=== PATIENT | male | born 1990 | race Caucasian/White ===

== ENCOUNTER 2017-07-12 18:20 | Observation (INO) | payer SELFPAY ==
[2017-07-12] MEDS ORDERED: NORMAL SALINE 1000 ML 1,000 ML IV ONE ×3 (18:58→22:32)
--- NOTE | 2017-07-12 18:59 | ER Document Report ---
ED Medical Screen (RME) - General Chief Complaint: Abdominal Pain Stated Complaint: VOMITING Time Seen by Provider: 07/12/17 18:55 TRAVEL OUTSIDE OF THE [place] IN LAST 30 DAYS: No - HPI Notes: 07/12/17 18:59 Worsening right lower quadrant pain - Related Data Allergies/Adverse Reactions: No Known Allergies Allergy (Verified 07/12/17 18:29) Past Medical History - Social History Chew tobacco use (# tins/day): No Frequency of alcohol use: Rare Drug Abuse: Marijuana Renal/ Medical History: Denies: Hx Peritoneal Dialysis Psychiatric Medical History: Reports: Hx Bipolar Disorder - Immunizations Hx Diphtheria, Pertussis, Tetanus Vaccination: Yes Review of Systems - Review of Systems Gastrointestinal: Abdominal pain Physical Exam - Vital signs Vitals: Temp Pulse Resp BP Pulse Ox 98 F 61 16 147/86 H 100 07/12/17 18:25 07/12/17 18:25 07/12/17 18:25 07/12/17 18:25 07/12/17 18:25 - Abdominal Tenderness: Tender - Right lower quadrant tenderness mild to moderate periumbilical tenderness as well Course - Vital Signs Vital signs: Temp Pulse Resp BP Pulse Ox 98 F 61 16 147/86 H 100 07/12/17 18:25 07/12/17 18:25 07/12/17 18:25 07/12/17 18:25 07/12/17 18:25
[2017-07-12] MEDS ORDERED: ONDANSETRON HCL INJ/PF 4 MG/2 ML SDV IV ONE ×2 (19:25→19:54)
[2017-07-12 19:33] LABS: ABSOLUTE MONOCYTES (AUTO) 0.7 10^3/uL (0.1-1.4); ABSOLUTE NEUT (AUTO) 12.9 10^3/uL (1.7-8.2); BASOPHILS % (AUTO) 0.3 % (0-2); EOSINOPHILS % (AUTO) 0.2 % (0-6); HEMATOCRIT 45.4 % (37.9-51.0); HEMOGLOBIN 15.4 g/dL (13.5-17.0); HGB HCT DIFFERENCE 0.8; LYMPHOCYTES % (AUTO) 7.1 % (13-45); MEAN CORPUSCULAR VOLUME 91 fl (80-97); MONOCYTES % (AUTO) 4.9 % (3-13); RED BLOOD COUNT 4.97 10^6/uL (4.35-5.55); RED CELL DISTRIBUTION WIDTH 12.5 % (11.5-14.0); SEGMENTED NEUTROPHILS % (AUTO) 87.5 % (42-78); WHITE BLOOD COUNT 14.7 10^3/uL (4.0-10.5)
--- NOTE | 2017-07-12 19:35 | ER Document Report ---
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 No BM, pain got worse, threw up, couldn't get comfortable, came back to ER (was here earlier with son). No fever, but gets sweats before vomiting. Vomited up the 1st bottle of CT contrast. Past few days had a bad right ear pain. surgeries: screws in fx left ankle. No abd. surgeries. Had pain in testicles when coughing/vomiting earlier, none now. TRAVEL OUTSIDE OF THE [place] IN LAST 30 DAYS: No - Related Data Allergies/Adverse Reactions: No Known Allergies Allergy (Verified 07/12/17 18:29) Home Medications: Current Home Medications No Home Medications 07/13/17 [History] Past Medical History - General Information source: Patient - Social History Smoking Status: Current Every Day Smoker Chew tobacco use (# tins/day): No Frequency of alcohol use: Rare Drug Abuse: Marijuana Lives with: Family Family History: Reviewed & Not Pertinent Patient has suicidal ideation: No Patient has homicidal ideation: No Renal/ Medical History: Denies: Hx Peritoneal Dialysis Psychiatric Medical History: Reports: Hx Bipolar Disorder Past Surgical History: Reports: Hx Orthopedic Surgery - ankle - Immunizations Hx Diphtheria, Pertussis, Tetanus Vaccination: Yes Review of Systems - Review of Systems Constitutional: No symptoms reported EENT: No symptoms reported Cardiovascular: No symptoms reported Respiratory: No symptoms reported Gastrointestinal: See HPI Genitourinary: No symptoms reported Male Genitourinary: No symptoms reported Musculoskeletal: No symptoms reported Skin: No symptoms reported Hematologic/Lymphatic: No symptoms reported Neurological/Psychological: No symptoms reported Physical Exam - Vital signs Vitals: Temp Pulse Resp BP Pulse Ox 98 F 61 16 147/86 H 100 07/12/17 18:25 07/12/17 18:25 07/12/17 18:25 07/12/17 18:25 07/12/17 18:25 Interpretation: Normal - General General appearance: Appears well, Alert - HEENT Head: Normocephalic, Atraumatic Eyes: Normal Conjunctiva: Normal Pupils: PERRL Mucous membranes: Normal Pharynx: Erythema - mild Neck: Supple. No: Lymphadenopathy - Respiratory Respiratory status: No respiratory distress Chest status: Nontender Breath sounds: Normal Chest palpation: Normal - Cardiovascular Rhythm: Regular Heart sounds: Normal auscultation Murmur: No - Abdominal Inspection: Normal Distension: No distension Bowel sounds: Normal Tenderness: Tender - very low lateral right abeomen, not mcburny's, no hernia Organomegaly: No organomegaly - Genitourinary Tenderness: Nontender. No: Testicle tender, Epididymis tender Scrotum: Normal. No: Swelling Notes: pt states testicle are hanging normally - Back Back: Normal, Nontender. No: CVA tenderness - Extremities General upper extremity: Normal inspection, Nontender, Normal color, Normal ROM , Normal temperature General lower extremity: Normal inspection, Nontender, Normal color, Normal ROM , Normal temperature, Normal weight bearing. No: Elvira's sign - Neurological Neuro grossly intact: Yes Cognition: Normal Orientation: AAOx4 [place] Coma Scale Eye Opening: Spontaneous Mary Ellen Coma Scale Verbal: Oriented Mary Ellen Coma Scale Motor: Obeys Commands [place] Coma Scale Total: 15 Speech: Normal Motor strength normal: LUE, RUE, LLE, RLE Sensory: Normal - Psychological Associated symptoms: Normal affect, Normal mood - Skin Skin Temperature: Warm Skin Moisture: Dry Skin Color: Normal Course - Re-evaluation Re-evalutation: 07/12/17 22:30 Ua 1.058, after the CT scan iv contrast, inflammation surrounding a normal sized appendix that is inflamed and the radiologist says that is early appendicitis. Zosyn has been ordered. Dr. Bellamy will admit the patient. The patient does admit that he did eat something at 8 PM tonight but vomited it back up. - Vital Signs Vital signs: Temp Pulse Resp BP Pulse Ox 98.0 F 66 17 117/64 98 07/13/17 09:44 07/13/17 09:44 07/13/17 09:44 07/13/17 09:44 07/13/17 09:44 - Laboratory Result Diagrams: 07/12/17 19:20 07/12/17 19:20 Laboratory results interpreted by me: 07/12/17 07/12/17 19:20 19:20 WBC 14.7 H Seg Neutrophils % 87.5 H Lymphocytes % 7.1 L Absolute Neutrophils 12.9 H Sodium 147.9 H AST 16 L ALT 20 L Discharge - Discharge Clinical Impression: early appendicitis Condition: Good Disposition: ADMITTED INPATIENT Admitting Provider: Surgicalist Unit Admitted: Surgical Floor
[2017-07-12 19:52] LABS: ALANINE AMINOTRANSFERASE 20 U/L (21-72); ALBUMIN 4.9 g/dL (3.5-5.0); ALKALINE PHOSPHATASE 99 U/L (38-126); ANION GAP 16 (5-19); ASPARTATE AMINO TRANSFERASE 16 U/L (17-59); BILIRUBIN,DIRECT 0.3 mg/dL (0.0-0.4); BILIRUBIN,TOTAL 0.4 mg/dL (0.2-1.3); BLOOD UREA NITROGEN 15 mg/dL (7-20); CALCIUM 9.6 mg/dL (8.4-10.2); CARBON DIOXIDE 30 mmol/L (22-30); CHLORIDE 102 mmol/L (98-107); CREATININE RESULT 0.91 mg/dL (0.52-1.25); GLUCOSE 109 mg/dL (75-110); LIPASE 91.5 U/L (23-300); SODIUM 147.9 mmol/L (137-145); TOTAL PROTEIN 7.9 g/dL (6.3-8.2)
--- NOTE | 2017-07-12 21:56 | RADIOLOGY REPORT (SQ) ---
EXAM DESCRIPTION: CT ABD/PELVIS WITH IV ORAL COMPLETED DATE/TIME: 07/12/2017 9:36 pm REASON FOR STUDY: RLQ pain COMPARISON: None. TECHNIQUE: CT scan of the abdomen and pelvis performed using helical scanning technique with dynamic intravenous contrast injection. No oral contrast. Images reviewed with lung, soft tissue, and bone windows. Reconstructed coronal and sagittal MPR images reviewed. Delayed images for evaluation of the urinary system also acquired. All images stored on PACS. All CT scanners at this facility use dose modulation, iterative reconstruction, and/or weight based d osing when appropriate to reduce radiation dose to as low as reasonably achievable (ALARA). [facility]: Dose Right [facility]: CareDose [facility]: Dose Right [facility]: Teradose 4D [facility]: C3 Metrics CONTRAST TYPE AND DOSE: contrast/concentration: Isovue 370.00 mg/ml; Total Contrast Delivered: 67.0 ml; Total Saline Delivered: 65.0 ml RENAL FUNCTION: BUN 15; creatinine 0.91 RADIATION DOSE: CT Rad equipment meets quality standard of care and radiation dose reduction techniq ues were employed. CTDIvol: 5.1 - 6.2 mGy. DLP: 549 mGy-cm.. LIMITATIONS: None. FINDINGS: LOWER CHEST: No significant findings. No nodules or infiltrates. LIVER: Normal size. No masses. No dilated ducts. SPLEEN: Normal size. No focal lesions. PANCREAS: No masses. No significant calcifications. No adjacent inflammation or peripancreatic fluid collections. Pancreatic duct not dilated. GALLBLADDER: No identified stones by CT criteria. No inflammatory changes to suggest cholecystitis. ADRENAL GLANDS: No significant masses or asymmetry. RIGHT KIDNEY AND URETER: No solid masses. No significant calcifications. No hydronephrosis or hyd roureter. LEFT KIDNEY AND URETER: No solid masses. No significant calcifications. No hydronephrosis or hydr oureter. AORTA AND VESSELS: No aneurysm. No dissection. Renal arteries, SMA, celiac without stenosis. RETROPERITONEUM: No retroperitoneal adenopathy, hemorrhage or masses. BOWEL AND PERITONEAL CAVITY: Right pericolic mesenteric fat stranding. Enteric contrast is seen to t he level of the cecum. The bowel appears unremarkable. APPENDIX: While the appendix measures normal caliber, mural thickening and hyperemia are present and inflammatory changes are seen adjacent to this structure. No focal fluid collection or abscess. No pneumoperitoneum. PELVIS: No mass. Scant simple appearing free fluid is present. Normal bladder. ABDOMINAL WALL: No masses. No hernias. BONES: No significant or acute findings. OTHER: No other significant finding. IMPRESSION: Findings consistent with early uncomplicated appendicitis. TECHNICAL DOCUMENTATION: JOB ID: [id number] Quality ID # [id number]: Final reports with documentation of one or more dose reduction techniques (e.g., Au tomated exposure control, adjustment of the mA and/or kV according to patient size, use of iterative reconstruction technique) 2010 [employer]- All Rights Reserved
[2017-07-12 22:09] LABS: APPEARANCE,URINE CLEAR; BILIRUBIN,URINE NEGATIVE (NEGATIVE); GLUCOSE, URINE NEGATIVE (NEGATIVE); KETONES,URINE NEGATIVE (NEGATIVE); LEUKOCYTE ESTERASE,URINE NEGATIVE (NEGATIVE); NITRITE,URINE NEGATIVE (NEGATIVE); PROTEIN,URINE NEGATIVE (NEGATIVE); URINE SPECIFIC GRAVITY 1.058; UROBILINOGEN,URINE NEGATIVE mg/dL (<2.0)
[2017-07-12] MEDS ORDERED: PIPERACILLIN/TAZOBACTAM 3.375 GM VIAL IV ONE (22:31)
[2017-07-12] MEDS ORDERED: ONDANSETRON HCL INJ/PF 4 MG/2 ML SDV IV PRN (23:54)
[2017-07-12] MEDS ORDERED: HYDROMORPHONE HCL INJ/PF 2 MG/ML AMPULE IV PRN (23:54)
[2017-07-12] MEDS ORDERED: PIPERACILLIN SODIUM/TAZOBACTAM 3.375 GM in NORMAL SALINE 100 ML IV ONE (23:59)
[2017-07-13] MEDS: HYDROMORPHONE HCL INJ/PF 2 MG/ML AMPULE IV PRN ×2 (00:09→11:40)
[2017-07-13] MEDS ORDERED: GLUCAGON,HUMAN RECOMB 1 MG INJ SUBCUT PRN (00:37)
[2017-07-13] MEDS ORDERED: DEXTROSE 50%-WATER 25 GM/50 ML DISP.SYRIN IV PRN ×2 (00:37)
[2017-07-13] MEDS ORDERED: DEXTROSE 40% GEL 15 GM TUBE PO PRN ×2 (00:37)
[2017-07-13] MEDS: POTASSI CL 20 MEQ/D5-1/2NS 1L 1000 ML IV PRN ×2 (01:54→12:31)
[2017-07-13] MEDS ORDERED: PIPERACILLIN/TAZOBACTAM 3.375 GM VIAL IV ONE (06:14)
[2017-07-13] MEDS: PIPERACILLIN/TAZOBACTAM 3.375 GM VIAL IV PRN ×2 (06:32→06:36)
[2017-07-13] MEDS: PIPERACILLIN SODIUM/TAZOBACTAM 3.375 GM in NORMAL SALINE 100 ML IV SCH ×2 (06:38→13:50)
[2017-07-13] MEDS ORDERED: IBUPROFEN INJ 800 MG/8 ML VIAL IV ONE (09:57)
[2017-07-13] MEDS ORDERED: MIDAZOLAM 2 MG/2 ML INJ ONE (09:57)
[2017-07-13] MEDS ORDERED: PROPOFOL INJ 200 MG/20 ML VIAL IV ONE (09:57)
[2017-07-13] MEDS ORDERED: FENTANYL CITRATE INJ/PF 100 MCG/2 ML AMPUL ONE (09:57)
[2017-07-13] MEDS ORDERED: MORPHINE SULFATE 10 MG/ML INJ ONE (09:58)
--- NOTE | 2017-07-13 09:58 | HISTORY AND PHYSICAL E ---
History and Physical NAME: CORAL SERNA : 1990 AGE: 27Y ADMITTED: 07/12/2017 ROOM: 428 A 27-year-old male patient came into the emergency room with history of abdominal pain. The symptoms started 07/12/2017. The patient complained of a 1 day history of nausea, abdominal pain and vomiting. He came to the emergency room for evaluation and management. PAST MEDICAL PROBLEMS: No major medical problems. PAST SURGICAL HISTORY: None. REVIEW OF SYSTEMS: As per examination. PHYSICAL EXAMINATION: GENERAL: He is a pleasant young gentleman not in acute distress. VITAL SIGNS: Stable. HEAD AND NECK EXAMINATION: No lymphadenopathy. No masses. RESPIRATORY EXAMINATION: Both lungs are clear to auscultation. CARDIOVASCULAR EXAMINATION: Heart sounds regular. No murmurs, rubs or gallops. ABDOMINAL EXAMINATION: His abdomen has slight tenderness in the right lower quadrant area. No mass palpable. No hernia. EXTREMITIES: Warm, well perfused. IMAGING STUDIES: CT scan of the abdomen and pelvis done, which revealed normal diameter of appendix, but of the appendix. White count 4000. IMPRESSION OVERALL: 1. EARLY APPENDICITIS. 2. DEHYDRATION DUE TO MULTIPLE EPISODES OF NAUSEA AND VOMITING. PLAN: Admit for IV hydration. Once he is rehydrated, then plan for laparoscopic appendectomy. IV antibiotic started. DICTATING PHYSICIAN: DARA MEREDITH M.D. [id number] MALATHI#: [id number] ID: [id number] JOB#: [id number] ACCT: [id number] cc:NO Dino AVALOS MTDD
[2017-07-13] MEDS: BUPIVACAINE HCL 0.5%-EPI 1:200000 INJ/PF 30 ML VIAL ONE ×2 (10:02→10:29)
[2017-07-13] MEDS ORDERED: FENTANYL CITRATE INJ/PF 100 MCG/2 ML AMPUL IV PRN ×3 (10:34)
[2017-07-13] MEDS ORDERED: DIPHENHYDRAMINE HCL 50 MG/ML VIAL IV PRN (10:34)
[2017-07-13] MEDS ORDERED: MEPERIDINE HCL/PF INJ 25 MG/1 ML DISP.SYRIN IV PRN (10:34)
[2017-07-13] MEDS ORDERED: MORPHINE SULFATE 10 MG/ML INJ IV PRN (10:34)
[2017-07-13] MEDS ORDERED: PROMETHAZINE HCL INJ 25 MG/1 ML VIAL IV PRN ×2 (10:34)
[2017-07-13] MEDS ORDERED: OXYCODONE-ACETAMINOPHEN 5-325 MG TABLET PO PRN ×2 (10:34)
[2017-07-13] MEDS ORDERED: HYDROMORPHONE HCL INJ/PF 2 MG/ML AMPULE ONE (11:41)
[2017-07-13] MEDS ORDERED: ONDANSETRON HCL INJ/PF 4 MG/2 ML SDV ONE (13:16)
[2017-07-13] MEDS ORDERED: SUCCINYLCHOLINE CHLORIDE INJ 200 MG/10 ML VIAL ONE (13:16)
[2017-07-13] MEDS ORDERED: ROCURONIUM BROMIDE INJ 50 MG/5 ML VIAL IV ONE (13:16)
[2017-07-13] MEDS ORDERED: DEXAMETHASONE SOD PHOSPHATE INJ 4 MG/1 ML VIAL ONE (13:16)
--- NOTE | 2017-07-13 13:43 | OPERATIVE REPORT E ---
Operative Report NAME: CORAL SERNA : 1990 AGE: 27Y DATE OF SURGERY: 07/13/2017 ROOM: 428 PREOPERATIVE DIAGNOSIS: A 27-year-old male patient with acute appendicitis. POSTOPERATIVE DIAGNOSES: 1. Acute appendicitis. 2. Small umbilical hernia. OPERATIONS: 1. Laparoscopic appendectomy. 2. Repair of umbilical hernia. SURGEON: DARA MEREDITH M.D. ANESTHESIA: General. BLOOD LOSS: Less than 5 mL. TISSUE REMOVED OR ALTERED: Appendix. HISTORY AND INDICATION: As described. DESCRIPTION OF OPERATION: The patient in the supine position with CD boots. The abdomen was cleaned and draped for sterile field. He was given antibiotic, Zosyn continued. In the infraumbilical area, about 1 cm small hernial defect dissected. Through the same defect, a 12 mm trocar inserted. Under direct laparoscopic visualization, a 5 mm trocar was inserted in the suprapubic area and another 5 in the left lower quadrant area. Findings: The appendix inflamed and large, no rupture, no leak, no abscess. The appendix was mobilized from the part of the retrocecal area and the mesoappendix was divided and scalpel with complete hemostasis. The appendix was divided by using a #45 stapler close to the cecum and retrieved with an EndoCatch bag. The abdominal cavity and pelvic cavity were irrigated and suctioned out, completely hemostatic. All the trocars were removed. All pneumoperitoneum cleared. The fascia around the umbilical hernia defect was mobilized superiorly and inferiorly and then overlapping repair of the hernia was performed by using 0 Vicryl running suture in 2 layers and 3-0 and 4-0 Vicryl for the skin. The patient encountered no problems and was taken to the recovery room in stable condition. DICTATING PHYSICIAN: DARA MEREDITH M.D. [id number] PHY#: [id number] ID: [id number] JOB#: [id number] ACCT: [id number] cc:DARA MEREDITH M.D. > MTDD
[2017-07-13 15:47] VITALS: BP 117/64
--- NOTE | 2017-07-13 22:43 | DISCHARGE SUMMARY E ---
Discharge Summary NAME: CORAL SERNA : 1990 AGE: 27Y ADMITTED: 07/12/2017 DISCHARGED: 07/13/2017 REASON FOR ADMISSION: Admitted for observation. ADMITTING DIAGNOSIS: Early acute appendicitis. DISCHARGE DIAGNOSIS: Early acute appendicitis. OPERATIVE PROCEDURE: Laparoscopic appendectomy. HOSPITAL COURSE: The patient is feeling well postoperative. Tolerating diet. I have given IV Zosyn. Pain is under well control. He is being discharged home to follow up in the surgery clinic in 2 weeks. DICTATING PHYSICIAN: DARA MEREDITH M.D. [id number] PHY#: [id number] ID: [id number] JOB#: [id number] ACCT: [id number] cc:Karthik ELLIOTT M.D. >
== END 2017-07-13 16:13 | disposition home or self-care (01) ==
LOC: ER 18:20 → EH 23:04 → INTOOBSV 23:04 → 4S 07-13 00:35
PROVIDERS: ATTEND Colon & Rectal Surgery
PROC: 0WQF4ZZ Repair Abdominal Wall, Percutaneous Endoscopic Approach (ICD-10-PCS; 2017-07-13)
PROC: 0DTJ4ZZ Resection of Appendix, Percutaneous Endoscopic Approach (ICD-10-PCS; principal; 2017-07-13 09:15)
DX: K35.80 Unspecified acute appendicitis (principal); K42.9 Umbilical hernia without obstruction or gangrene; E86.0 Dehydration; F17.200 Nicotine dependence, unspecified, uncomplicated; F12.10 Cannabis abuse, uncomplicated
CPT/HCPCS: 96376; 99285; 96361; 96374; 36415; 83690; 85025; 80053; 81001; 88304 ×2; 74177; 44970; 49652; G0378; J2250; J3490 ×2; J1100; J3010; J2270; J1170; J3480; J0330; J2405 ×2; J7030; J2704; J2543; J1741; 840

== ENCOUNTER 2017-08-06 20:49 | Emergency (ER) | payer SELFPAY ==
[2017-08-06 21:10] VITALS: BP 120/71
--- NOTE | 2017-08-06 22:51 | ER Document Report ---
ED ENT - General Chief Complaint: Ear Pain Stated Complaint: EAR PAIN Time Seen by Provider: 08/06/17 22:38 Mode of Arrival: Ambulatory Information source: Patient Notes: Patient is a 27-year-old male comes emergency room complaining of right ear pain. Patient states he has this happen quite a lot he has been seen at different ER facilities which she says is on a regular basis for his right ear left ear pain. He states he put on amoxicillin and the pain gets better and goes away. This was started today and he has had difficulty sleeping. Patient is also requesting a referral to ENT if at all possible. He denies any other medical problems he is recently had his appendix out which is the only major medical things had going. 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 TRAVEL OUTSIDE OF THE [place] IN LAST 30 DAYS: No - HPI Patient complains to provider of: Ear problem Onset: This morning Onset/Duration: Sudden, Worse Quality of pain: Achy Severity: Moderate Pain Level: 3 Context: denies: Allergies, Injury, Recent Illness, Travel, Other Location of pain: Ears Associated symptoms: Dental pain, Jaw pain, Sinus pain. denies: None, Barotrauma, Broken tooth, Chills, Congestion, Cough, Dental caries, Difficulty swallowing, Dizziness, Drooling, Ear pain, Ear drainage, Ear trauma, Face swelling, Fever, Foreign body, Hearing loss, Headache, Hoarse voice, Jaw swelling, Motion sickness, Neck pain, Nose bleed, Runny nose, Sinus drainage, Sore throat, Stiff neck, Swollen glands, Tinnitus, Vertigo, Other Similar symptoms previously: Yes Recently seen / treated by doctor: No - Related Data Allergies/Adverse Reactions: No Known Allergies Allergy (Verified 07/12/17 18:29) Past Medical History - General Information source: Patient - Social History Smoking Status: Current Every Day Smoker Cigarette use (# per day): Yes - Half-pack a day Smoking Education Provided: Yes Frequency of alcohol use: Rare Drug Abuse: None Occupation: Correction Lives with: Family Family History: Reviewed & Not Pertinent Renal/ Medical History: Denies: Hx Peritoneal Dialysis Psychiatric Medical History: Reports: Hx Bipolar Disorder Past Surgical History: Reports: Hx Orthopedic Surgery - ankle - Immunizations Hx Diphtheria, Pertussis, Tetanus Vaccination: Yes Review of Systems - Review of Systems Constitutional: No symptoms reported EENT: Ear pain, Nose congestion, Dental problem Cardiovascular: No symptoms reported Respiratory: No symptoms reported Gastrointestinal: No symptoms reported Genitourinary: No symptoms reported Male Genitourinary: No symptoms reported Musculoskeletal: No symptoms reported Skin: No symptoms reported Hematologic/Lymphatic: No symptoms reported Neurological/Psychological: No symptoms reported -: Yes All other systems reviewed and negative Physical Exam - Vital signs Vitals: Temp Pulse Resp BP Pulse Ox 98.2 F 69 16 120/71 98 08/06/17 21:09 08/06/17 21:09 08/06/17 21:09 08/06/17 21:09 08/06/17 21:09 Interpretation: Normal - General General appearance: Alert, Other - Uncomfortable appearing - HEENT Head: Normocephalic, Atraumatic Eyes: Normal Fundascopic: Retinal detachment - Bulging slightly. There is moderate amount of erythema that is noted throughout the canal on the side. Ears shows that the left ear appears normal. This is the external canals are clear of any kind of cerumen. Right side shows no cerumen and TM is it is not swollen enough to use a wick at this time but it is swollen enough that needs drops currently. Patient denies any swimming or any wetness to the ear that he knows of except sweats. Ears: Normal External canal: Erythema, Swollen, Other - Termination of patient's bilateral Tympanic membrane: Bulging - Patient also has some mild bulging on the right TM with a fluid level behind it. There is moderate erythema surrounding the TM. Mucous membranes: Dry, Moist, Other - Termination patient's oral cavity and externally on the face shows no major swelling. TMJ does show a little bit of crepitus on the right side when compared to the left. There is some dental dysfunction in the right upper area which between the TMJ right upper dental decay and the ear patient may have a combination of things going on. Teeth diagram: 1 - Patient has dental caries on the right side that are noted. Also has some on the upper level that could be adding to the discomfort on the ear as well. Pharynx: Normal, Post nasal drainage. No: Blood in hypopharynx, Erythema, Exudate, Peritonsillar abscess, Retropharyngeal abscess, Tonsillar hypertrophy, Uvular edema, Potential airway comprom., Other Neck: Normal - Respiratory Respiratory status: No respiratory distress Chest status: Nontender Breath sounds: Normal. No: Decreased air movement, Nonproductive cough, Productive cough, Rales, Rhonchi, Stridor, Wheezing, Other Chest palpation: Normal - Cardiovascular Rhythm: Regular Heart sounds: Normal auscultation Murmur: No - Neurological Neuro grossly intact: Yes Cognition: Normal Orientation: AAOx4 [place] Coma Scale Eye Opening: Spontaneous Mary [place]ln Coma Scale Verbal: Oriented [place] Coma Scale Motor: Obeys Commands [place] Coma Scale Total: 15 Speech: Normal Cranial nerves: Normal - Skin Skin Temperature: Warm Skin Moisture: Dry Skin Color: Normal, [place] Course - Vital Signs Vital signs: Temp Pulse Resp BP Pulse Ox 98.2 F 69 16 120/71 98 08/06/17 21:09 08/06/17 21:09 08/06/17 21:09 08/06/17 21:09 08/06/17 21:09 - Transfer of Care Notes: 08/06/17 22:55 Physical exam does show that the external canal is very erythematous on the right will use drops for this. The TMJ seems to be a little loose and a little crepitus noticed with opening and [id number] motion. And there is some dental decay in the upper right side may be adding to the pain in the ear. Will give patient a referral to the ENT communication arts lecturer. Discharge - Discharge Clinical Impression: Otitis externa Qualifiers: Otitis externa type: unspecified type Chronicity: acute Laterality: right Qualified Code(s): H60.501 - Unspecified acute noninfective otitis externa, right ear Otitis media with effusion Qualifiers: Laterality: right Qualified Code(s): H65.91 - Unspecified nonsuppurative otitis media, right ear Condition: Good Disposition: HOME, SELF-CARE Instructions: Acetaminophen, Use of Ear Drops ([facility]), Otitis Externa ([facility]) Additional Instructions: Home and rest. Medications prescribed. As we discussed am giving you the name of the ears nose and throat communication arts lecturer today he may contact her office to see if they can accommodate you. Should you have any concerns or problems or if things electronic data interchange specialist the next 2448 hrs. return to ER for recheck. Prescriptions: Amoxicillin 500 mg PO TID #30 capsule Neomy Sulf/Polymyx B Sulf/Hc [Cortisporin Otic Susp] 3 drop Q4 7 Days #1 bottle Forms: Smoking Cessation Education, Return to Work Referrals: CIRA NANCE DO [ACTIVE STAFF] - Follow up as needed
== END 2017-08-06 23:05 | disposition home or self-care (01) ==
LOC: ER 20:49
DX: H60.501 Unspecified acute noninfective otitis externa, right ear (principal); H65.91 Unspecified nonsuppurative otitis media, right ear; H92.01 Otalgia, right ear; K02.9 Dental caries, unspecified; K08.89 Other specified disorders of teeth and supporting structures; J34.89 Other specified disorders of nose and nasal sinuses; R09.82 Postnasal drip; R09.81 Nasal congestion; F17.210 Nicotine dependence, cigarettes, uncomplicated; Z90.49 Acquired absence of other specified parts of digestive tract
CPT/HCPCS: 99282

== ENCOUNTER 2017-10-05 21:50 | Emergency (ER) | payer BC ==
[2017-10-06] MEDS ORDERED: IBUPROFEN 800 MG TABLET PO ONE (00:33)
[2017-10-06] MEDS ORDERED: PENICILLIN V POTASSIUM 500 MG TABLET PO ONE (00:33)
--- NOTE | 2017-10-06 00:33 | ER Document Report ---
HPI - HPI Patient complains to provider of: Toothache Pain Level: 0 Context: Patient is a 27-year-old male presents emergency department complaining of bilateral jaw pain as well as left lower toothache. Patient states that he has had sharp pain on and off for the past 6 months. He otherwise states that his toothache is been over the past week. He denies any foul drainage, difficulty swallowing. States that he does have pain when eating. He states that he is trying to follow-up with his dentist in 1 week. Otherwise patient is very difficult to speak to in a poor historian. He states that he did take a Percocet from a family member prior to arrival. - REPRODUCTIVE Reproductive: DENIES: : Past Medical History - Social History Smoking Status: Current Every Day Smoker Family History: Reviewed & Not Pertinent Renal/ Medical History: Denies: Hx Peritoneal Dialysis Psychiatric Medical History: Reports: Hx Bipolar Disorder Past Surgical History: Reports: Hx Appendectomy, Hx Orthopedic Surgery - ankle - Immunizations Hx Diphtheria, Pertussis, Tetanus Vaccination: Yes Vertical Provider Document - CONSTITUTIONAL Agree With Documented VS: Yes Notes: PHYSICAL EXAM GENERAL: Alert, interacts well. HEENT: NCAT, pale conjunctiva, extraocular movements intact, pupils PERRL. external ear normal, no evidence of external auditory canal tenderness, blood/ drainage, cerumen impaction, TM intact without evidence of effusion, bulging, injection, MMM, Uvula midline. Airway patent. No evidence of tonsillar enlargement, peritonsillar abscess, retropharyngeal abscess. Tenderness along bilateral TMJ with pain reproducible palpation. Otherwise left lower molar tender to palpation without any evidence of surrounding abscess. LUNGS: Clear to auscultation bilaterally, no wheezes, rales, or rhonchi. No respiratory distress. HEART: Regular rate and rhythm. No murmurs, gallops, or rubs. NEUROLOGICAL: Alert and oriented x4. Normal speech. PSYCH: Normal affect, normal mood. SKIN: Warm, dry, normal turgor. No rashes or lesions noted. - INFECTION CONTROL TRAVEL OUTSIDE OF THE [place] IN LAST 30 DAYS: No - RESPIRATORY O2 Sat by Pulse Oximetry: 97 Course - Re-evaluation Re-evalutation: 10/06/17 00:32 Patient is a 27-year-old male who is hemodynamically stable, no acute distress and afebrile. Presentation is consistent with chronic TMJ and associated acute toothache. Airway is patent. Vitals within normal limits. Patient is able swallow without any difficulty. There is no significant facial swelling. Will discharge patient home on prednisone with instruction to follow-up with his dentist. Otherwise instructed him to take [id number] Motrin and Tylenol. Patient agrees with plan and stable for discharge home. - Vital Signs Vital signs: Temp Pulse Resp BP Pulse Ox 98.2 F 56 L 18 113/77 97 10/05/17 22:43 10/05/17 22:43 10/05/17 22:43 10/05/17 22:43 10/05/17 22:43 Discharge - Discharge Clinical Impression: TMJ (temporomandibular joint syndrome), Toothache Condition: Good Disposition: HOME, SELF-CARE Instructions: Temporomandibular Joint Syndrome ([facility]) Additional Instructions: You have been seen for dental pain. It is very important that you follow-up with a dentist for definitive care. Please return if you develop fever greater than 101, swelling in your face, vomiting, difficulty breathing or swallowing, or any other symptoms that are concerning to you. For pain you should take ibuprofen 600 mg every 6 hours as needed. [facility] [address] [place], [place] Friday mornings, by appointment [facility] [address] [place] [address] [facility] [address] [facility] [address] [facility] Department [facility] [address] [email or web address] [address] [place] [address] Friday- 8:00am to 5:00 pm Will see patients from other [facility]. Charges based on income and family size and accepts Medicare, Medicaid, and Insurances Will pull molars [facility] [place]. [address] Hours of Operation 8:00 am - 4:30 pm weekdays The following dental offices accept Medicaid: [facility] [address] Dr. Beckham Abram Valadez, Joseluis, and Pattie oral surgery Dr. Segal ([place]) Dr. Angeles ([place]) [facility] Drs. Diaz ([place]) Dr. Camara ([place]) [facility] Dr. Hernandez ([place]) Drs. Red and ([place]) Medicaid Care Line Prescriptions: Penicillin V Potassium [Penicillin Vk 500 mg Tablet] 500 mg PO TID 7 Days #21 tablet
[2017-10-06 01:04] VITALS: BP 128/68
== END 2017-10-06 01:03 | disposition home or self-care (01) ==
LOC: ER 21:50
DX: K08.89 Other specified disorders of teeth and supporting structures (principal); M26.623 Arthralgia of bilateral temporomandibular joint; F17.200 Nicotine dependence, unspecified, uncomplicated
CPT/HCPCS: 99282

== ENCOUNTER 2017-11-05 21:52 | Emergency (ER) | payer BC ==
[2017-11-05 22:27] VITALS: BP 135/87
--- NOTE | 2017-11-05 22:35 | ER Document Report ---
HPI - HPI Pain Level: 4 Notes: Patient is a 27-year-old male with no significant past medical history aside from recurrent right ear pain who presents to the ED complaining of right ear pain over the last day but worsening over the last few hours. Patient states that he has also had nasal congestion/discharge and an occasional dry nonproductive cough. Patient states that he does have some throat irritation as well. Patient does admit to smoking but denies IV drug use. The pains do not radiate. He is still eating and drinking without difficulties. He is urinating normally & having normal bowel movements. He denies any drug allergies. Denies any current headache, fever, head injury, neck pain, chest pain, palpitations, syncope, shortness of breath, wheeze, dyspnea, abdominal pain, nausea/vomiting/diarrhea, urinary retention, dysuria, hematuria, or rash. - ROS Systems Reviewed and Negative: Yes All other systems reviewed and negative - REPRODUCTIVE Reproductive: DENIES: : Past Medical History - Social History Smoking Status: Current Every Day Smoker Family History: Reviewed & Not Pertinent Renal/ Medical History: Denies: Hx Peritoneal Dialysis Psychiatric Medical History: Reports: Hx Bipolar Disorder Past Surgical History: Reports: Hx Appendectomy, Hx Orthopedic Surgery - ankle - Immunizations Hx Diphtheria, Pertussis, Tetanus Vaccination: Yes Vertical Provider Document - CONSTITUTIONAL Agree With Documented VS: Yes Notes: PHYSICAL EXAMINATION: GENERAL: Well-appearing, well-nourished and in no acute distress. A&Ox4. Answers questions appropriately. Moves comfortably w/o notable distress HEAD: Atraumatic, normocephalic. EYES: Pupils equal round and reactive to light, extraocular movements intact, sclera anicteric, conjunctiva are normal. ENT: EAC clear b/l. Rt TM bulging, erythemic. Lt TM wnl. Nares patent and with clear discharge. oropharynx no erythema without exudates. No tonsilar hypertrophy without erythema or exudate. No palatine shift. Uvula midline. No tongue protrusion. No drooling, hoarseness, or airway compromise. Moist mucous membranes. No sinus tenderness. NECK: Normal range of motion, supple without lymphadenopathy. No rigidity/ meningismus. LUNGS: Breath sounds clear to auscultation bilaterally and equal. No wheezes rales or rhonchi. No retractions HEART: Regular rate and rhythm without murmurs, rubs, gallops. ABDOMEN: Soft, nontender, nondistended abdomen. No guarding, no rebound. No masses appreciated. Normal bowel sounds present. No CVA tenderness bilaterally. No hepatosplenomegaly. NEUROLOGICAL: Normal speech, normal gait. Normal sensory, motor exams PSYCH: Normal mood, normal affect. SKIN: Warm, Dry, normal turgor, no rashes or lesions noted. - INFECTION CONTROL TRAVEL OUTSIDE OF THE [place] IN LAST 30 DAYS: No Course - Re-evaluation Re-evalutation: 11/05/17 22:38 Patient is an afebrile, well-hydrated, 27-year-old male who presents to the ED with acute URI and acute otitis media of the right ear. Vitals are acceptable. PE is otherwise unremarkable. No labs or imaging warranted at this time based on H&P. I suspect that his URI is viral. Patient does have a very infected appearing right tympanic membrane. I will send him home with a prescription for Augmentin to take as directed. Low suspicion for any meningitis, sepsis, peritonsillar/pharyngeal abscess, respiratory compromise, Travis's, or other emergent systemic condition at this time. Patient is aware this condition can change from initial presentation and he needs to monitor symptoms closely. Conservative measures otherwise for symptoms. Recheck with your PCM in 3-5 days. Consider consult with ENT. Return to the ED with any worsening/concerning symptoms otherwise as reviewed in discharge. Patient is in agreement. - Vital Signs Vital signs: Temp Pulse Resp BP Pulse Ox 98.7 F 51 L 16 135/87 H 99 11/05/17 22:25 11/05/17 22:25 11/05/17 22:25 11/05/17 22:25 11/05/17 22:25 Discharge - Discharge Clinical Impression: Acute URI Otitis media, right Qualifiers: Otitis media type: unspecified Qualified Code(s): H66.91 - Otitis media, unspecified, right ear Condition: Stable Disposition: HOME, SELF-CARE Instructions: Otitis Media ([facility]), Upper Respiratory Illness ([facility]) Additional Instructions: Maintain adequate fluid intake Take meds as directed tylenol/ibuprofen as needed over the counter cold medication as needed for symptoms Humidified air may help Wash your hands regularly Wear a mask when coughing F/u: with your PCM in 3-5 days for a recheck Schedule an appointment with ENT Return to the ED with any fever, worsening pain, chest pain, palpitations, syncope, worsening VEGA, neck pain/stiffness, shortness of breath, wheezing, drooling, trouble swallowing/breathing, abdominal pain, n/v/d, rash, or worsening/concerning symptoms otherwise. Prescriptions: Amox Tr/Potassium Clavulanate [Augmentin 875-125 Tablet] 1 tab PO BID 10 Days # 20 tablet Forms: Elevated Blood Pressure, Smoking Cessation Education Referrals: YONATHAN RAMRIEZ DO [ASSOCIATE] - Follow up as needed
== END 2017-11-05 22:54 | disposition home or self-care (01) ==
LOC: ER 21:52
DX: H66.91 Otitis media, unspecified, right ear (principal); J06.9 Acute upper respiratory infection, unspecified; H92.01 Otalgia, right ear; R05 Cough; R09.89 Other specified symptoms and signs involving the circulatory and respiratory systems; F17.200 Nicotine dependence, unspecified, uncomplicated
CPT/HCPCS: 99282